=== PATIENT | female | born 1955 ===

== ENCOUNTER 2017-07-14 08:00 | Outpatient (RCR) | payer SELFPAY | END 2017-08-12 | disposition home or self-care (01) | LOC: WCC 08:00 | DX: T86.821 Skin graft (allograft) (autograft) failure (principal); Z90.13 Acquired absence of bilateral breasts and nipples; Z85.3 Personal history of malignant neoplasm of breast; Z90.89 Acquired absence of other organs; Z91.041 Radiographic dye allergy status; Z91.013 Allergy to seafood | CPT/HCPCS: G0277 ×2 ==

== ENCOUNTER 2017-07-14 10:00 | Outpatient (RCR) | payer BC, SELFPAY | END 2017-08-12 | disposition home or self-care (01) | LOC: WCC 10:00 → EDSTATUS 10:34 | DX: T86.821 Skin graft (allograft) (autograft) failure (principal); Z90.89 Acquired absence of other organs; Z90.13 Acquired absence of bilateral breasts and nipples; Z85.3 Personal history of malignant neoplasm of breast; Z91.041 Radiographic dye allergy status; Z91.013 Allergy to seafood | CPT/HCPCS: G0277 ×9 ==